=== PATIENT | male | born 2000 | race Caucasian/White ===

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

== ENCOUNTER 2020-05-20 15:35 | Emergency (ER) | payer MEDICAID, OTHER ==
[~2020-05-20] VITALS: Ht 170.2 cm; Wt 56.2 kg
[2020-05-20] MEDS ORDERED: IBUP200T45 PO (16:06)
[2020-05-20 17:20] VITALS: BP 145/63
== END 2020-05-20 17:22 | disposition home or self-care (01) ==
LOC: M ED 15:35
DX: F32.9 Major depressive disorder, single episode, unspecified (principal); Z60.9 Problem related to social environment, unspecified

== ENCOUNTER 2021-01-25 19:32 | Emergency (ER) | payer OTHER ==
[~2021-01-25] VITALS: Ht 170.2 cm; Wt 57.9 kg
[~2021-01-25 19:32] MED LIST changes: +IBUP200T45 PO
[2021-01-25 19:33] VITALS: BP 133/89
--- NOTE | 2021-01-25 20:36 | REP ---
INDICATION: PAIN AFTER PUNCHING A TREE COMPARISON: None. TECHNIQUE: AP, lateral, bilateral oblique views right hand. FINDINGS: Soft tissue swelling over the metacarpophalangeal joints suggested on lateral radiograph. No definite acute fracture or dislocation is appreciated. No subcutaneous emphysema or foreign body. IMPRESSION: . No acute fracture or dislocation. <Electronically signed by Pawan Duron > 01/25/21 [id number]
== END 2021-01-25 20:58 | disposition left against medical advice (07) ==
LOC: M ED 19:32
DX: Z53.21 Procedure and treatment not carried out due to patient leaving prior to being seen by health care provider (principal)

== ENCOUNTER 2021-01-27 13:56 | Emergency (ER) | payer OTHER ==
[~2021-01-27] VITALS: Ht 180.3 cm; Wt 65.9 kg
[2021-01-27 13:57] VITALS: BP 158/72
[2021-01-27] MEDS ORDERED: MIRT-60 (17:32)
== END 2021-01-27 14:15 | disposition left against medical advice (07) ==
LOC: M ED 13:56
DX: Z53.21 Procedure and treatment not carried out due to patient leaving prior to being seen by health care provider (principal)

== ENCOUNTER 2021-01-27 16:55 | Emergency (ER) | payer OTHER ==
[2021-01-27 17:31] VITALS: BP 140/72
[2021-01-27] MEDS ORDERED: MIRT-60 (17:32)
== END 2021-01-27 19:48 | disposition home or self-care (01) ==
LOC: M ED 16:55
DX: R45.4 Irritability and anger (principal); Z60.9 Problem related to social environment, unspecified

== ENCOUNTER 2021-01-29 19:15 | Emergency (ER) | payer OTHER ==
[~2021-01-29] VITALS: Ht 170.2 cm; Wt 68.2 kg
[~2021-01-29 19:15] MED LIST changes: -IBUP200T45 PO; +IBUP200T46 PO; +MIRT-60
[2021-01-29 20:02] LABS: HEMATOCRIT 47.4 % (42.0-52.0); MEAN CORPUSCULAR HEMOGLOBIN 29.3 pg (27.0-33.0); MEAN CORPUSCULAR HGB CONC 33.8 g/dl (32.0-36.5); MEAN CORPUSCULAR VOLUME 86.7 fl (80.0-96.0); PLATELET COUNT, AUTOMATED 218 10^3/uL (150-450); RED BLOOD COUNT 5.47 10^6/uL (4.30-6.10); WHITE BLOOD COUNT 6.2 10^3/uL (4.0-10.0)
[2021-01-29 20:29] LABS: AMPHETAMINES LEVEL URINE NEGATIVE (NEGATIVE); BARBITURATES URINE NEGATIVE (NEGATIVE); BENZODIAZEPINES URINE NEGATIVE (NEGATIVE); CANNABINOIDS URINE POSITIVE (NEGATIVE); COCAINE METABOLITE URINE NEGATIVE (NEGATIVE); METHADONE URINE NEGATIVE (NEGATIVE); OPIATES URINE NEGATIVE (NEGATIVE); PHENCYCLIDINE URINE NEGATIVE (NEGATIVE)
[2021-01-29 21:02] LABS: ACETAMINOPHEN LEVEL < 2.0 UG/ML (10.0-30.0); ALBUMIN 5.1 GM/DL (3.2-5.2); ALT/SGPT 27 U/L (12-78); BILIRUBIN,DIRECT 0.2 MG/DL (0.0-0.2); BILIRUBIN,TOTAL 0.9 MG/DL (0.2-1.0); BLOOD UREA NITROGEN 17 MG/DL (7-18); CALCIUM LEVEL 9.5 MG/DL (8.5-10.1); CARBON DIOXIDE LEVEL 30 MEQ/L (21-32); CHLORIDE LEVEL 102 MEQ/L (98-107); CREATININE FOR GFR 1.23 MG/DL (0.70-1.30); ETHYL ALCOHOL (ETHANOL) < 0.003 % (0.000-0.010); GLUCOSE, FASTING 97 MG/DL (70-100); POTASSIUM SERUM 3.9 MEQ/L (3.5-5.1); SODIUM LEVEL 139 MEQ/L (136-145); TOTAL PROTEIN 8.3 GM/DL (6.4-8.2)
[2021-01-29 21:46] VITALS: BP 146/86
== END 2021-01-29 21:48 | disposition home or self-care (01) ==
LOC: M ED 19:15
DX: F32.9 Major depressive disorder, single episode, unspecified (principal); F43.0 Acute stress reaction; F12.10 Cannabis abuse, uncomplicated; Z79.899 Other long term (current) drug therapy

== ENCOUNTER 2021-01-31 21:16 | Emergency (ER) | payer OTHER ==
[~2021-01-31] VITALS: Ht 167.6 cm; Wt 63.6 kg
[~2021-01-31 21:16] MED LIST changes: +IBUP200T45 PO; -IBUP200T46 PO
[2021-01-31 21:55] LABS: WHITE BLOOD COUNT 5.6 10^3/uL (4.0-10.0)
[2021-01-31 21:56] LABS: HEMATOCRIT 48.4 % (42.0-52.0); HEMOGLOBIN 16.4 g/dl (13.5-17.5); MEAN CORPUSCULAR HEMOGLOBIN 29.6 pg (27.0-33.0); MEAN CORPUSCULAR HGB CONC 33.9 g/dl (32.0-36.5); MEAN CORPUSCULAR VOLUME 87.4 fl (80.0-96.0); PLATELET COUNT, AUTOMATED 211 10^3/uL (150-450); RED BLOOD COUNT 5.54 10^6/uL (4.30-6.10)
[2021-01-31 22:16] LABS: AMPHETAMINES LEVEL URINE NEGATIVE (NEGATIVE); BARBITURATES URINE NEGATIVE (NEGATIVE); BENZODIAZEPINES URINE NEGATIVE (NEGATIVE); CANNABINOIDS URINE POSITIVE (NEGATIVE); COCAINE METABOLITE URINE NEGATIVE (NEGATIVE); METHADONE URINE NEGATIVE (NEGATIVE); OPIATES URINE NEGATIVE (NEGATIVE); PHENCYCLIDINE URINE NEGATIVE (NEGATIVE)
[2021-01-31 22:41] LABS: ACETAMINOPHEN LEVEL < 2.0 UG/ML (10.0-30.0); ALBUMIN 5.3 GM/DL (3.2-5.2); ALT/SGPT 26 U/L (12-78); BILIRUBIN,DIRECT 0.2 MG/DL (0.0-0.2); BILIRUBIN,TOTAL 1.1 MG/DL (0.2-1.0); BLOOD UREA NITROGEN 10 MG/DL (7-18); CALCIUM LEVEL 9.4 MG/DL (8.5-10.1); CARBON DIOXIDE LEVEL 28 MEQ/L (21-32); CHLORIDE LEVEL 104 MEQ/L (98-107); CREATININE FOR GFR 1.16 MG/DL (0.70-1.30); ETHYL ALCOHOL (ETHANOL) < 0.003 % (0.000-0.010); GLUCOSE, FASTING 99 MG/DL (70-100); POTASSIUM SERUM 3.9 MEQ/L (3.5-5.1); SALICYLATE LEVEL < 1.7 MG/DL (5.0-30.0); SODIUM LEVEL 139 MEQ/L (136-145); THYROID STIMULATING HORMONE 0.704 uIU/ML (0.463-3.98); TOTAL PROTEIN 8.6 GM/DL (6.4-8.2)
[2021-01-31] MEDS ORDERED: MIRT-60 PO (23:06)
[2021-02-01] MEDS ORDERED: ONDANSETRON 4 MG ORAL DISINTEGRATING TAB PO ONE (00:15)
[2021-02-01] MEDS ORDERED: LORazepam 2 MG TAB PO ONE (01:00)
[2021-02-01 12:10] VITALS: BP 133/80
== END 2021-02-01 12:11 | disposition home or self-care (01) ==
LOC: M ED 21:16
DX: F32.9 Major depressive disorder, single episode, unspecified (principal); F12.10 Cannabis abuse, uncomplicated
CPT/HCPCS: 80048; 80076; 80143; 80307; 82077; 84443; 85027; 99284; Q0162

== ENCOUNTER 2022-01-10 20:40 | Inpatient (IN) | payer MEDICAID, OTHER ==
[~2022-01-10] VITALS: Ht 175.3 cm; Wt 54.4 kg
[~2022-01-10 20:40] MED LIST changes: -IBUP200T45 PO; +IBUP200T46 PO; +MIRT-60 PO
[2022-01-10 21:12] LABS: HEMOGLOBIN 14.7 g/dl (13.5-17.5); MEAN CORPUSCULAR HEMOGLOBIN 30.5 pg (27.0-33.0); MEAN CORPUSCULAR VOLUME 87.1 fl (80.0-96.0); PLATELET COUNT, AUTOMATED 191 10^3/uL (150-450); RED BLOOD COUNT 4.82 10^6/uL (4.30-6.10); WHITE BLOOD COUNT 5.7 10^3/uL (4.0-10.0)
[2022-01-10 21:46] LABS: RSV AMPLIFICATION NEGATIVE (NEGATIVE)
[2022-01-10 21:52] LABS: AMPHETAMINES LEVEL URINE NEGATIVE (NEGATIVE); BARBITURATES URINE NEGATIVE (NEGATIVE); BENZODIAZEPINES URINE NEGATIVE (NEGATIVE); CANNABINOIDS URINE POSITIVE (NEGATIVE); COCAINE METABOLITE URINE NEGATIVE (NEGATIVE); METHADONE URINE NEGATIVE (NEGATIVE); OPIATES URINE NEGATIVE (NEGATIVE); PHENCYCLIDINE URINE NEGATIVE (NEGATIVE)
[2022-01-10 22:01] LABS: ALBUMIN 4.5 GM/DL (3.2-5.2); ALT/SGPT 19 U/L (12-78); BILIRUBIN,DIRECT 0.2 MG/DL (0.0-0.2); BILIRUBIN,TOTAL 0.7 MG/DL (0.2-1.0); BLOOD UREA NITROGEN 9 MG/DL (7-18); CALCIUM LEVEL 9.1 MG/DL (8.5-10.1); CARBON DIOXIDE LEVEL 29 MEQ/L (21-32); CHLORIDE LEVEL 103 MEQ/L (98-107); CREATININE FOR GFR 1.25 MG/DL (0.70-1.30); ETHYL ALCOHOL (ETHANOL) < 0.003 % (0.000-0.010); GLOMERULAR FILTRATION RATE > 60.0 (>60); GLUCOSE, FASTING 107 MG/DL (70-100); POTASSIUM SERUM 4.3 MEQ/L (3.5-5.1); SALICYLATE LEVEL 3.2 MG/DL (5.0-30.0); SODIUM LEVEL 137 MEQ/L (136-145); THYROID STIMULATING HORMONE 0.672 uIU/ML (0.358-3.740); TOTAL PROTEIN 7.8 GM/DL (6.4-8.2)
[2022-01-11] MEDS ORDERED: MOM 30ML SUSPENSION UDC PO PRN (13:35)
[2022-01-11] MEDS ORDERED: OLANZapine ORAL DISINTEGRATING TAB 5MG PO PRN (13:35)
[2022-01-11] MEDS ORDERED: IBUPROFEN 400MG TAB PO PRN (13:35)
[2022-01-11] MEDS ORDERED: MAALOX 30 ML SUSP *UDC PO PRN (13:35)
[2022-01-11] MEDS ORDERED: diphenhydrAMINE 25MG CAP PO PRN (13:35)
[2022-01-11] MEDS ORDERED: HOME MED LIST COMPLETE! XX SCH (14:10)
[2022-01-11] MEDS: NICOTINE 21MG/24HR 1 EA TRANSDERMAL TD SCH (16:15)
[2022-01-11 18:23] VITALS: BP 135/93
[2022-01-11] MEDS: traZODone 50 MG TAB PO PRN (23:48)
[2022-01-12] MEDS: NICOTINE 21MG/24HR 1 EA TRANSDERMAL TD SCH (09:00)
[2022-01-12 11:50] VITALS: BP 135/93
[2022-01-12 16:00] VITALS: BP 142/88
[2022-01-13 06:45] VITALS: BP 155/91
[2022-01-13] MEDS: NICOTINE 21MG/24HR 1 EA TRANSDERMAL TD SCH (09:00)
[2022-01-14] MEDS: traZODone 50 MG TAB PO PRN ×2 (02:50→21:30)
[2022-01-14 07:07] VITALS: BP 129/73
[2022-01-14] MEDS: NICOTINE 21MG/24HR 1 EA TRANSDERMAL TD SCH (09:19)
[2022-01-14 18:00] VITALS: BP 139/81
[2022-01-15 06:45] VITALS: BP 137/73
[2022-01-15 07:24] LABS: CHOLESTEROL RISK RATIO 3.065 (<5)
[2022-01-15] MEDS: NICOTINE 21MG/24HR 1 EA TRANSDERMAL TD SCH (09:30)
[2022-01-15] MEDS: ESCITALOPRAM OXALATE 5MG TABLET (LEXAPRO) PO SCH (09:30)
[2022-01-15] MEDS: traZODone 50 MG TAB PO PRN (22:06)
[2022-01-16] MEDS: NICOTINE 21MG/24HR 1 EA TRANSDERMAL TD SCH (09:33)
[2022-01-16] MEDS: ESCITALOPRAM OXALATE 5MG TABLET (LEXAPRO) PO SCH (09:33)
[2022-01-16] MEDS ORDERED: ABIL1TAB11 PO (12:47)
[2022-01-16] MEDS ORDERED: NICO21PAT TD (12:47)
[2022-01-16] MEDS ORDERED: LEXA5TAB13 PO (12:47)
[2022-01-16] MEDS ORDERED: TRAZ-252 PO (12:47)
== END 2022-01-16 14:52 | disposition home or self-care (01) | DRG 751 ==
LOC: M ED 20:40 → M ED INP 01-11 13:32 → M PSY 01-11 16:43
PROVIDERS: ADMIT Student in an Organized Health Care Education/Training Program; ATTEND Student in an Organized Health Care Education/Training Program
DX: F29 Unspecified psychosis not due to a substance or known physiological condition (principal); U07.1 COVID-19; F60.89 Other specific personality disorders; F63.9 Impulse disorder, unspecified; G43.909 Migraine, unspecified, not intractable, without status migrainosus; E73.9 Lactose intolerance, unspecified; Z79.899 Other long term (current) drug therapy; F12.90 Cannabis use, unspecified, uncomplicated; F41.9 Anxiety disorder, unspecified

== ENCOUNTER 2022-11-23 00:04 | Emergency (ER) | payer MEDICAID, OTHER ==
[~2022-11-23] VITALS: Ht 175.3 cm; Wt 61.9 kg
[~2022-11-23 00:04] MED LIST changes: +ABIL1TAB11 PO; +LEXA5TAB13 PO; +NICO21PAT TD; +TRAZ-252 PO
[2022-11-23 00:05] VITALS: BP 158/93
== END 2022-11-23 03:37 | disposition left against medical advice (07) ==
LOC: M ED 00:04
DX: Z53.21 Procedure and treatment not carried out due to patient leaving prior to being seen by health care provider (principal)

== ENCOUNTER 2022-11-27 20:50 | Emergency (ER) | payer OTHER ==
[~2022-11-27] VITALS: Ht 175.3 cm; Wt 63.2 kg
[2022-11-27 22:55] LABS: HEMATOCRIT 42.2 % (42.0-52.0); HEMOGLOBIN 14.3 g/dl (13.5-17.5); MEAN CORPUSCULAR HEMOGLOBIN 30.4 pg (27.0-33.0); MEAN CORPUSCULAR HGB CONC 33.9 g/dl (32.0-36.5); MEAN CORPUSCULAR VOLUME 89.8 fl (80.0-96.0); PLATELET COUNT, AUTOMATED 230 10^3/uL (150-450); WHITE BLOOD COUNT 6.8 10^3/uL (4.0-10.0)
[2022-11-27] MEDS ORDERED: TRAZ-186 PO (23:02)
[2022-11-27] MEDS ORDERED: LEXA1TAB PO (23:02)
[2022-11-27] MEDS ORDERED: HOME MED LIST COMPLETE! XX SCH (23:05)
[2022-11-27 23:19] LABS: AMPHETAMINES LEVEL URINE NEGATIVE (NEGATIVE)
[2022-11-27 23:20] LABS: BARBITURATES URINE NEGATIVE (NEGATIVE); BENZODIAZEPINES URINE NEGATIVE (NEGATIVE); COCAINE METABOLITE URINE NEGATIVE (NEGATIVE); ETHYL ALCOHOL (ETHANOL) < 0.003 % (0.000-0.010); METHADONE URINE NEGATIVE (NEGATIVE); OPIATES URINE NEGATIVE (NEGATIVE); PHENCYCLIDINE URINE NEGATIVE (NEGATIVE)
[2022-11-27 23:22] LABS: ACETAMINOPHEN LEVEL < 2.0 UG/ML (10.0-20.0); ALBUMIN 4.6 G/DL (3.2-5.2); ALKALINE PHOSPHATASE 54 U/L (46-116); ALT/SGPT 22 U/L (7.0-40); AST/SGOT 27 U/L (<34); BILIRUBIN,DIRECT 0.2 MG/DL (<0.4); BILIRUBIN,TOTAL 0.5 MG/DL (0.3-1.2); BLOOD UREA NITROGEN 13 MG/DL (9-23); CALCIUM LEVEL 9.6 MG/DL (8.5-10.1); CARBON DIOXIDE LEVEL 27 MMOL/L (20-31); CHLORIDE LEVEL 103 MMOL/L (98-107); CREATININE FOR GFR 0.94 MG/DL (0.70-1.30); GLOMERULAR FILTRATION RATE > 60.0 (>60); GLUCOSE, FASTING 87 MG/DL (60-100); POTASSIUM SERUM 4.2 MMOL/L (3.5-5.1); SALICYLATE LEVEL < 3.0 MG/DL (<30); SODIUM LEVEL 138 MMOL/L (136-145); TOTAL PROTEIN 7.3 G/DL (5.7-8.2)
[2022-11-27 23:24] LABS: THYROID STIMULATING HORMONE 0.651 uIU/ML (0.55-4.78)
[2022-11-27 23:25] LABS: CANNABINOIDS URINE POSITIVE (NEGATIVE)
[2022-11-28] MEDS ORDERED: HYDR-643 PO (00:46)
[2022-11-28 01:54] VITALS: BP 138/85
== END 2022-11-28 02:00 | disposition home or self-care (01) ==
LOC: M ED 20:50
DX: F41.9 Anxiety disorder, unspecified (principal); F32.9 Major depressive disorder, single episode, unspecified; F90.9 Attention-deficit hyperactivity disorder, unspecified type

== ENCOUNTER 2025-03-31 23:07 | Emergency (ER) | payer MEDICAID, OTHER, SELFPAY ==
[~2025-03-31] VITALS: Ht 177.8 cm; Wt 66.0 kg
[~2025-03-31 23:07] MED LIST changes: +HYDR-643 PO; +LEXA1TAB PO; -MIRT-60; -MIRT-60 PO; +MIRT-89; +MIRT-89 PO; +TRAZ-186 PO
[2025-04-01 01:15] VITALS: BP 116/75; TEMP 99.2; O2SAT 100
== END 2025-04-01 01:21 | disposition home or self-care (01) ==
LOC: M ED 23:07
DX: S60.221A Contusion of right hand, initial encounter (principal); W22.8XXA Striking against or struck by other objects, initial encounter; Y92.9 Unspecified place or not applicable; Y93.9 Activity, unspecified; Y99.9 Unspecified external cause status; F90.9 Attention-deficit hyperactivity disorder, unspecified type; R51.9 Headache, unspecified; Z79.899 Other long term (current) drug therapy